=== PATIENT | male | born 1975 | race Asian ===

== ENCOUNTER 2023-08-08 23:10 | Emergency (ER) | payer SELFPAY ==
[~2023-08-08] VITALS: Ht 177.8 cm; Wt 79.2 kg
[2023-08-08 23:24] VITALS: BP 129/85; PULSE 64; RESP 14; TEMP 98; O2SAT 100
[2023-08-09] MEDS ORDERED: TETRACAINE 0.5% OPHTH DROPS 4ML BOTHEYE ONE (00:30)
[2023-08-09] MEDS ORDERED: FLUORESCEIN SODIUM 1MG/STRIP BOTHEYE ONE (01:45)
[2023-08-09] MEDS ORDERED: IBUP-2030 MT (02:44)
[2023-08-09] MEDS ORDERED: ERYT1OIN6 RIGHTEYE (02:44)
== END 2023-08-09 03:20 | disposition home or self-care (01) ==
LOC: ER 23:10
DX: S05.01XA Injury of conjunctiva and corneal abrasion without foreign body, right eye, initial encounter (principal); Y08.89XA Assault by other specified means, initial encounter; Y93.89 Activity, other specified; Y92.89 Other specified places as the place of occurrence of the external cause; Y99.8 Other external cause status
CPT/HCPCS: 99283